=== PATIENT | male | born 1970 | race Caucasian/White ===

== ENCOUNTER 2023-09-06 07:25 | Emergency (ER) | payer OTHER, SELFPAY ==
[2023-09-06 07:37] VITALS: BP 128/87; PULSE 114; RESP 14; TEMP 36.3; O2SAT 95; BMI 25.7
--- NOTE | 2023-09-06 07:53 | ED_ITS ---
HPI - General Adult General Chief complaint: Psychiatric Symptoms Stated complaint: SI Time Seen by Provider: 09/06/23 07:53 Source: patient Mode of arrival: ambulatory Limitations: no limitations History of Present Illness HPI narrative: Patient is a 53 year old assigned male at with a history of alcohol abuse presenting to the emergency department today with suicidal ideation. Patient states that he has a plan to jump in front of a car. Patient denies any dizziness, lightheadedness, abdominal pain, nausea, vomiting, fever, chills, blurry vision, double vision, loss of vision, chest pain, difficulty breathing, shortness of breath, back pain, night sweats, pain with urination, increased urinary frequency, increased urinary urgency, blood in hisurine or stool, syncope or a near syncopal episode, recent trauma or falls, bowel incontinence, bladder incontinence, bowel retention, bladder retention, or any other complaints at this time. Onset (ago): day(s) (2) Relieving factors: none Exacerbating factors: none Associated symptoms: denies other symptoms Treatments prior to arrival: none Related Data Home Medications Medication Instructions Recorded Confirmed atorvastatin 20 mg tablet 20 mg PO DAILY 09/06/23 09/06/23 buspirone 10 mg tablet 10 mg PO TID 09/06/23 09/06/23 hydroxyzine HCl 50 mg tablet 50 mg PO BID 09/06/23 09/06/23 hydroxyzine pamoate 50 mg capsule 50 mg PO BID PRN Anxiety 09/06/23 09/06/23 naltrexone 50 mg tablet 50 mg PO DAILY 09/06/23 09/06/23 sertraline 100 mg tablet 100 mg PO DAILY 09/06/23 09/06/23 trazodone 50 mg tablet 50 mg PO BEDTIME 09/06/23 09/06/23 Allergies Allergy/AdvReac Type Severity Reaction Status Date / Time No Known Allergies Allergy Verified 09/06/23 07:54 Review of Systems 2 Constitutional: Constitutional: Reports no additional constitutional complaints, Denies chills, Denies fever(s) and Denies night sweats Eyes: Eyes: Reports no additional eye complaints, Denies blurry vision, Denies change in vision, Denies diplopia, Denies eye discharge, Denies loss of vision and Denies eye pain ENT: Denies dizziness Cardiovascular: Cardiovascular: Reports no additional cardiovascular complaints, Denies chest pain, Denies lightheadedness, Denies Loss of Consciousness and Denies dyspnea Respiratory: Respiratory: Reports no additional respiratory complaints and Denies dyspnea Gastrointestinal: Gastrointestinal: Reports no additional gastrointestinal complaints, Denies abdominal pain, Denies melena, Denies hematochezia, Denies change in bowel habits and Denies change in stool character Genitourinary: Genitourinary: Reports no additional male genitourinary complaints, Denies hematuria, Denies oliguria, Denies difficulty urinating, Denies dysuria, Denies urinary frequency, Denies urinary hesitancy, Denies urinary incontinence and Denies urinary urgency Musculoskeletal: Musculoskeletal: Reports no additional musculoskeletal complaints, Denies numbness and Denies tingling Neurologic: Denies dizziness, Denies loss of vision, Denies numbness and Denies tingling Psychiatric: Psychiatric: Denies homicidal ideation and Reports suicidal ideation Endocrine: Endocrine: Reports no additional endocrine complaints Hematologic/Lymphatic: Hematologic/Lymphatic: Reports no additional hematologic/lymphatic complaints Allergic/Immunologic: Allergic/Immunologic: Reports no additional allergic/immunologic complaints PMFSH Past Medical History Attestation statement: The following information was validated with the patient. Source: old records reviewed and nursing notes reviewed Social History Social History Alcohol intake: current Alcohol intake frequency: 3 or more drinks per day Alcohol type: hard liquor Smoked in Last 30 Days: Yes Use of substances other than those prescribed or required for medical reasons: Yes Substance Use Type: Marijuana Substance Use Frequency: Chronic Longstanding Last Used Substance: Just Prior to Admission Any prior treatment program specific to substance use: No Advance Directives: No Physical Exam ED Vital Signs: Vital Signs - 24 hr 09/06/23 07:37 09/06/23 08:10 Temperature 97.3 F Pulse Rate 114 H Respiratory Rate 14 16 Blood Pressure 128/87 Pulse Oximetry 95 Oxygen Delivery Method Room Air BMI result Body Mass Index 25.7 Const General: cooperative, no acute distress, alert and awake Nutritional Appearance: well nourished Orientation/consciousness: patient oriented x3 Limitations: no limitations HENMT Head: Yes normal to inspection and Yes atraumatic Ears: hearing grossly normal bilaterally and external ears normal General nose exam: Normal external nose present, no nasal discharge noted and no epistaxis Face and sinus: Yes normal facial exam, No abrasion and No laceration Mouth: Normal oral and palatal mucosa present, no drooling and no muffled voice Eyes General: appearance normal, both eyes and all related structures Periorbital: periorbital findings normal Eyelids: Yes eyelids normal Conjunctivae: conjunctivae normal Pupils: Equal, round and reactive pupils present EOM: EOMs intact bilaterally Neck Neck: Yes normal visual inspection, Yes full ROM and Yes no lymphadenopathy Chest Chest palpation & inspection: normal inspection of the chest Resp Effort & Inspection: normal respiratory effort and able to speak in complete sentences GI Inspection: Yes normal to inspection Neuro General: patient oriented x3 and moves all extremities Cranial nerves: Yes Equal, round and reactive pupils present Cognition (Neuro): normal cognition Motor exam (neuro): 5/5 motor strength present throughout Sensory Exam: Normal double simultaneous stimulation for sensation Coordination: [id number] test normal Extrem General: Yes normal to inspection, Yes full ROM and Yes capillary refill normal Psych Appearance: grossly normal Mental Status: mental status grossly normal Affect: normal affect Attitude: cooperative Thought process: Normal thought process present Thought content: Suicidality present Medications Administered Discontinued Medications Generic Name Dose Route Start Last Admin Trade Name Ghulamq PRN Reason Stop Dose Admin Lorazepam 2 mg 09/06/23 08:17 09/06/23 08:33 Lorazepam 1 Mg Tablet PO 09/06/23 08:18 2 mg ONCE ONE Administration Medical Decision Making Medical Decision Making [facility] Narrative: Patient is a 53 year old assigned male at with a history of alcohol abuse presenting to the emergency department today with suicidal ideation. Patient's physical exam was unremarkable. Patient's blood work showed an elevated WBC count of 18.5 however, the rest of the patient's labs were unremarkable. Patient has no evidence of an infectious process. I explained my physical exam findings as well as all test results to the patient. I answered all questions asked by the patient. Patient currently awaiting CARE team evaluation. Patient's disposition will be determined after CARE team evaluation. Differential Diagnosis Differential Diagnoses: The differential diagnosis associated with the presentation includes Alcohol abuse Suicidal ideation Admission/Observation Consideration of admission/observation: Escalation of care including admission/observation considered Patient's disposition will be determined after CARE team evaluation. Lab Data [facility] Lab Attestation statement: I reviewed the patient's lab results. My interpretation of these results are in the [facility] Rationale portion of this note. 09/06/23 08:12 09/06/23 08:12 Labs: Lab Results 09/06/23 Range/Units 08:12 WBC 18.5 H (4.8-10.8) X10*3/uL RBC 4.99 (4.60-5.80) X10*6/uL Hgb 15.2 (14.0-18.0) g/dl Hct 44.7 (42.0-52.0) % MCV 89.6 (80.0-98.0) fL MCH 30.5 (27.0-33.0) pg MCHC 34.0 (31.0-36.0) g/dl RDW 12.2 (11.0-16.0) % Plt Count 286 (160-400) X10*3/uL MPV 9.0 L (9.4-12.4) fL Immature Gran % (Auto) 1.5 H (0.0-0.4) % Neut % (Auto) 77.8 H (45-73) % Lymph % (Auto) 13.1 L (20-40) % [place] % (Auto) 7.1 (2-11) % Eos % (Auto) 0.1 (0-4) % Baso % (Auto) 0.4 (0-2) % Lymph # (Auto) 2.4 (1.2-4.9) X10*3/uL [place] # (Auto) 1.3 H (0.1-1.2) X10*3/uL Eos # (Auto) 0.0 (0.0-0.4) X10*3/uL Baso # (Auto) 0.1 (0.0-0.2) X10*3/uL Abs Immat Gran (auto) 0.27 H (0.00-0.03) X10*3/uL Absolute Neuts (auto) 14.4 H (2.0-8.3) x10*3/uL Absolute Nucleated RBC 0.000 (0.0-0.012) X10*3/uL Nucleated RBC % (auto) 0.0 (0.0-0.2) /100WBC Sodium 140 (135-145) mmol/L Potassium 3.7 (3.3-5.1) mmol/L Chloride 102 (96-108) mmol/L Carbon Dioxide 19 L (22-29) mmol/L Anion Gap 23 H (12-20) BUN 15 (9-16) mg/dL Creatinine 1.08 (0.5-1.4) mg/dL Estim Creat Clear Calc 85.8 Estimated GFR > 60 Random Glucose 94 (60-115) mg/dL Calcium 9.6 (8.4-10.2) mg/dL Total Bilirubin 0.7 (0.0-1.0) mg/dL AST 34 (5-37) U/L ALT 37 (0-40) U/L Alkaline Phosphatase 83 (39-117) U/L Total Protein 8.1 H (6.5-8.0) g/dL Albumin 4.9 (3.5-5.0) g/dL Salicylates < 5.0 L (15-30) mg/dL Acetaminophen < 3 (<30) mcg/mL Ethyl Alcohol 27 mg/dL COVID-19 ([place]) Negative (Negative) COVID-19 Clin Com See Note Social Determinants Patient?s care significantly limited by Social Determinants of Health including: Other Social Determinant of Health (patient has a history of alcoholism) Discharge Plan Discharge Clinical Impression: Suicidal ideation, Alcohol abuse Patient Disposition: Still a Patient Prescriptions: No Action atorvastatin 20 mg tablet 20 mg PO DAILY trazodone 50 mg tablet 50 mg PO BEDTIME naltrexone 50 mg tablet 50 mg PO DAILY sertraline 100 mg tablet 100 mg PO DAILY hydroxyzine pamoate 50 mg capsule 50 mg PO BID PRN (Reason: Anxiety) hydroxyzine HCl 50 mg tablet 50 mg PO BID buspirone 10 mg tablet 10 mg PO TID Interventions: [place]-Suicide Risk Severity Scale Last Done: 09/06/23 08:07
[2023-09-06 08:10] VITALS: RESP 16
[2023-09-06 08:17] LABS: MANUAL DIFF FLAG NO
[2023-09-06 08:18] LABS: Basophils Absolute Auto 0.1 X10*3/uL (0.0-0.2); Basophils Percent Auto 0.4 % (0-2); Eosinophils Percent Auto 0.1 % (0-4); Hematocrit 44.7 % (42.0-52.0); Hemoglobin 15.2 g/dl (14.0-18.0); Imm Gran Abs Auto 0.27 X10*3/uL (0.00-0.03); Imm Gran Pct Auto 1.5 % (0.0-0.4); Lymphocytes Absolute Auto 2.4 X10*3/uL (1.2-4.9); Lymphocytes Percent Auto 13.1 % (20-40); Mean Corpuscular Hemoglobin 30.5 pg (27.0-33.0); Mean Corpuscular Volume 89.6 fL (80.0-98.0); Monocytes Absolute Auto 1.3 X10*3/uL (0.1-1.2); Monocytes Percent Auto 7.1 % (2-11); Neutrophils Absolute Auto 14.4 x10*3/uL (2.0-8.3); Neutrophils Percent Auto 77.8 % (45-73); Platelet Count 286 X10*3/uL (160-400); Red Blood Count 4.99 X10*6/uL (4.60-5.80); Red Cell Distribution Width 12.2 % (11.0-16.0); White Blood Count 18.5 X10*3/uL (4.8-10.8)
[2023-09-06 08:33] LABS: Acetaminophen LAB < 3 mcg/mL (<30); Salicylate < 5.0 mg/dL (15-30)
[2023-09-06] MEDS: LORazepam 1 MG TABLET 2 MG PO (08:33)
[2023-09-06 08:35] LABS: Alanine Aminotransferase 37 U/L (0-40); Albumin Level 4.9 g/dL (3.5-5.0); Alkaline Phosphatase 83 U/L (39-117); Anion Gap 23 (12-20); Aspartate Amino Transferase 34 U/L (5-37); Bilirubin Total 0.7 mg/dL (0.0-1.0); Blood Urea Nitrogen 15 mg/dL (9-16); Calcium 9.6 mg/dL (8.4-10.2); Carbon Dioxide 19 mmol/L (22-29); Chloride 102 mmol/L (96-108); Creatinine Clr Calc Pharmacy 85.8; Estimated Glomerular Filt Rate > 60; Ethanol 27 mg/dL; Glucose Random 94 mg/dL (60-115); Potassium 3.7 mmol/L (3.3-5.1); Sodium 140 mmol/L (135-145); Total Protein 8.1 g/dL (6.5-8.0)
[2023-09-06 08:39] LABS: COVID-19 Test Negative (Negative); IDNOW Serial# 08D9AD1C
--- NOTE | 2023-09-06 08:41 | PC.NURSE ---
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 Patient comes in reporting Suicidal ideation with a plan to jump into traffic. Pt reports having an extensive history of depression and anxiety . He reports that he is med compliant and is looking to get help. He reports being an alcoholic, quitting 60 days ago but relapsing yesterday when he drank a case of beer. CIWA 7, medicated with Ativan 2mg per MAR. Patient is calm and cooperative, soft spoken but willing to engage in conversation. No apparent distress is noted at this time, respirations even and unlabored, skin pink cool and dry, ambulating with steady gait around pod Blood work drawn: significant for elevated white count Need urine sample at this time
[2023-09-06 12:26] VITALS: BP 107/72; PULSE 98; RESP 16; TEMP 36.6; O2SAT 96
--- NOTE | 2023-09-06 12:28 | PC.NURSE ---
repeat CIWA and vitals done. HR decreased and CIWA now 2
[2023-09-06 13:26] LABS: Appearance Urine Clear; Color Urine Yellow; Glucose Urine UA Negative (Negative); Leukocyte Esterase Urine Negative (Negative); Nitrite Urine Negative (Negative); PH 5.5 (5.0-9.0); Urine Blood Negative (Negative); Urine Ketones 15 mg/dL (Negative); Urine Protein Negative (Neg-Trace)
[2023-09-06 13:32] LABS: Amphetamine Screen Urine Not Detected (Not Detect); Barbiturates, Urine Not Detected (Not Detect); Benzodiazepines Screen Urine Not Detected (Not Detect); Cannabinoid Screen Urine Not Detected (Not Detect); Cocaine Screen Urine Not Detected (Not Detect); Fentanyl, urine Not Detected (Not Detect); Opiate Screen Urine Not Detected (Not Detect); Phencyclidine Screen Urine Not Detected (Not Detect)
--- NOTE | 2023-09-06 16:49 | PC.NURSE ---
Pt resting comfortably on bed in BH2, offers no complaints to this RN at this time. Respirations even and unlabored, no apparent distress. Per CARE team, patient is dual dx bedsearch
[2023-09-06 16:53] VITALS: BP 101/59; PULSE 99; RESP 20; TEMP 37.3; O2SAT 94
--- NOTE | 2023-09-06 19:32 | PC.NURSE ---
patient appears to remain at rest at present respirations are even and unlabored patient appears in no distress
[2023-09-07 06:45] VITALS: BP 103/72; PULSE 78; RESP 17; TEMP 36.9; O2SAT 95
--- NOTE | 2023-09-07 07:54 | PC.NURSE ---
Assumed care of patient at 0700, patient ambulating with steady gait around BH pod, offering no complaints to this RN. Patient verbalizes understanding of plan of care for dual dx bedsearch. CIWA stable at this time, not requiring medications
[2023-09-07] MEDS: Naltrexone HCl 50 MG TABLET PO (08:04)
[2023-09-07] MEDS: Atorvastatin Calcium 20 MG TABLET PO (08:04)
[2023-09-07] MEDS: Sertraline HCL 100 MG TABLET PO (08:04)
[2023-09-07] MEDS: busPIRone HCl 10 MG TABLET PO ×2 (08:04→15:32)
[2023-09-07] MEDS: hydrOXYzine HCL 50 MG TABLET PO (08:04)
[2023-09-07] MEDS: Nicotine 21 MG PATCH.TD24 TRANSDERMA (11:16)
--- NOTE | 2023-09-07 14:29 | PC.NURSE ---
pt calm and cooperative, in no apparent distress, offering this RN no complaints. Agreeable to plan of care for dual dx bedsearch. Pt ate lunch and is now resting in his room
--- NOTE | 2023-09-07 16:02 | MHC.CARE ---
Pt remains dual dx bed search. Referral faxed to [facility] and [facility]
--- NOTE | 2023-09-07 16:48 | MHC.CARE ---
Addendum entered by Lena Herrera [facility] 09/07/23 17:03: CCA auth- [id number] Reviewer- Nelia Gallardo [id number] Original Note: Pt accepted to [facility] located at [address] [place] [address]. Accepting Lidia Sheth at [phone] opt 1- spoke with Charanjit
--- NOTE | 2023-09-07 18:24 | PC.NURSE ---
Pt aware of plan to transfer to [facility], eating dinner at this time. Transport ETA [id number]
[2023-09-07 18:54] VITALS: BP 102/73; PULSE 75; RESP 16; TEMP 36.4; O2SAT 95
== END 2023-09-07 18:55 ==
PROVIDERS: Physician Assistant Medical; Emergency Provider Emergency Medicine
DX: R45.851 Suicidal ideations (principal); F10.14 Alcohol abuse with alcohol-induced mood disorder; Y90.1 Blood alcohol level of 20-39 mg/100 ml; Z79.899 Other long term (current) drug therapy; Z11.52 Encounter for screening for COVID-19; Z51.81 Encounter for therapeutic drug level monitoring
CPT/HCPCS: 80053; 80143; 80179; 80307; 81003; 85025; 87635; 99285; S9485